=== PATIENT | male | born 1990 | race Caucasian/White ===

== ENCOUNTER 2018-02-18 22:22 | Emergency (ER) | payer SELFPAY ==
[~2018-02-18] VITALS: Ht 172.7 cm; Wt 77.0 kg
[2018-02-18] MEDS ORDERED: KETOROLAC TROMETHAMINE 30 MG/ML VIAL IM ONE (23:45)
[2018-02-18] MEDS ORDERED: LIDOCAINE HCL 1% 10 ML VIAL INJ ONE (23:45)
[2018-02-19 02:01] VITALS: BP 126/85
== END 2018-02-19 02:11 | disposition home or self-care (01) ==
LOC: EMS 22:23
DX: S41.151A Open bite of right upper arm, initial encounter (principal); S41.152A Open bite of left upper arm, initial encounter; S61.357A Open bite of left little finger with damage to nail, initial encounter; F12.90 Cannabis use, unspecified, uncomplicated; F17.210 Nicotine dependence, cigarettes, uncomplicated; Y04.1XXA Assault by human bite, initial encounter; Y93.89 Activity, other specified; Y92.89 Other specified places as the place of occurrence of the external cause; Y99.8 Other external cause status
CPT/HCPCS: 11730; 96372; 99283; J1885; J3490